=== PATIENT | male | born 2005 | race Caucasian/White ===

== ENCOUNTER 2024-07-29 12:16 | Emergency (ER) | payer OTHER, SELFPAY ==
[2024-07-29 12:18] VITALS: BP 121/81
--- NOTE | 2024-07-29 12:47 | ED.GENMED ---
History of Present Illness
General
Chief Complaint: Head Injury
Source: patient
Time Seen by Provider: 07/29/24 12:37
History of Present Illness
History of Present Illness:
19yoM with no significant past medical history presenting with his parents for evaluation after an head injury about 1-2 hours ago. Patient was playing 2 hand touch football. He was not wearing a helmet and collided with his friend. He was hit on
the right side of his head. There was no reported LOC but patient has some memory loss and has some periods of time that he does not remember. He was driven home and mother noticed that he was repeating himself and forgetful so family brought him to
the ED. He reports nausea but denies any vomiting. No dizziness or visual changes. No prior history of head injuries or concussions.
Phy Exam
General Physical Exam
General Presentation: well appearing and no apparent distress
General age: appears stated age
General Skin: warm and dry
General Habitus: normal
General Mental: alert
ENT Exam
ENT Exam: TM's normal (No hemotympanum), normocephalic (No external signs of head trauma) and other (No cervical spine tenderness with full ROM)
Eye Exam
Eye Exam: PERRL and EOMI
Pulmonary Exam
Pulmonary Exam: no respiratory distress
Neurological Exam
Neurological Exam: alert and other (GCS 15. Normal finger to nose and heel to shipman bilaterally. Normal tandem gait. )
Nancy Coma Scale
Eye Opening: Spontaneous
Verbal Response: Oriented
Motor Response: Obeys Commands
GCS Total Score: 15
Skin Exam
Skin Exam: normal color and warm/dry
Psychiatric Exam
Psychiatric Exam: normal mood/affect
Course
Orders/Labs/Results
Orders:
Orders
07/29/24 12:46
CT Head W/o Iv Contrast Urgent
Comment:
Reason For Exam: Head injury, memory loss
Ondansetron Orally Disint [Zofran Odt (Orally Disintegrating)] 4 mg PO NOW STA
Vital Signs
Initial and Last Documented VS:
Initial Vital Signs
Temp Pulse Resp BP Pulse Ox
98.3 F 79 16 121/81 100
07/29/24 12:18 07/29/24 12:18 07/29/24 12:18 07/29/24 12:18 07/29/24 12:18
Last Documented Vital Signs
Temp Pulse Resp BP Pulse Ox
98.3 F 65 18 101/73 97
07/29/24 12:18 07/29/24 14:31 07/29/24 14:31 07/29/24 14:31 07/29/24 14:31
MDM/Problems Addressed
Differential Diagnosis Includes:
19yoM here after a head injury. Patient collided with another person while playing football. No LOC but now forgetful with some memory loss. +Nausea and headache. VSS. He is awake, alert, with a GCS of 15. No external signs of head trauma on exam.
No focal neuro deficits appreciated. Differential diagnosis includes but is not limited to: closed head injury, concussion, intracranial hemorrhage, skull fracture
Initial ED plan: Check CT head. Zofran ODT for nausea.
*Critical Care Note
Total Time (30-74mins, 75-104mins- exclusive of procedures): Not Applicable
Update Note
Update Note:
CT head is negative for acute findings. Patient had an episode of vomiting while in the emergency department and is now feeling improved. Patient is stable for discharge. Presentation consistent with a concussion. Supportive care discussed.
Advised follow-up with PCP and ED return precautions discussed. He expressed understanding and is in agreement with plan. He was discharged in stable condition with his parents.
ED Attending Note
-
Portions of this chart may have been created with voice recognition software.� Occasional wrong word or��sound alike� substitutions may have occurred due to the inherent limitations of voice recognition software.
Discharge Plan
Departure
Patient Disposition: Home (Routine Discharge)
Date of Disposition: 07/29/24
Time of Disposition: 14:11
Patient with high blood pressure during this ER visit?: No
Discharge Problem:
Concussion
Instructions: Concussion, Adult (DC)
Prescriptions:
No Action
Azithromycin
250 mg PO BID
Referrals:
Jann Lizama MD [Family Provider] -
Activity Restrictions/Additional Instructions:
Stay hydrated and rest. Avoid screen time for the next 48-72 hours.
Please follow-up with your family doctor. Return to the ER with any worsening symptoms, confusion, seizures.
Interventions
Interventions:
*Risk Screen - Suicide Last Done: 07/29/24 12:18
*General Assessment Last Done: 07/29/24 12:18
*Neglect/Abuse Screening Last Done: 07/29/24 14:33
*ED COVID-19 Vaccine History Last Done: 07/29/24 12:18
*Nursing Disposition Last Done: 07/29/24 14:33
ED- Neurological Assessment Last Done: 07/29/24 13:37
ED-Skin Assessment Last Done: 07/29/24 13:37
Discharge Date and Time
Discharge Date/Time: 07/29/24 14:33
Print Language: AMHARIC
[2024-07-29] MEDS: ZOFRAN ODT (ORALLY DISINTEGRATING) 4 MG PO (13:02)
[2024-07-29 14:31] VITALS: BP 101/73
== END 2024-07-29 14:33 | disposition home or self-care (01) ==
LOC: EMR 12:16
PROVIDERS: EMERGENCY PHYSICIAN Emergency Medicine; FAMILY PHYSICIAN Family Medicine
DX: S06.0X0A Concussion without loss of consciousness, initial encounter (principal); W50.0XXA Accidental hit or strike by another person, initial encounter; Y93.61 Activity, american tackle football
CPT/HCPCS: 99284; 70450